=== PATIENT | male | born 1995 | race Caucasian/White ===

== ENCOUNTER 2021-10-04 20:24 | Emergency (ER) | payer SELFPAY ==
[~2021-10-04] VITALS: Ht 180.3 cm; Wt 97.5 kg
[2021-10-04 20:30] VITALS: BP_SYST 162
[2021-10-04 21:21] VITALS: BP_SYST 126
== END 2021-10-04 21:21 ==
LOC: SED 20:24
DX: F15.129 Other stimulant abuse with intoxication, unspecified (principal)
CPT/HCPCS: 71045; 93005; 99283